=== PATIENT | female | born 1965 | race Caucasian/White ===

== ENCOUNTER → 2016-11-05 | Outpatient (CLI) | payer OTHER ==
[~2016-11-05] MED LIST: ALBUTEROL2.5 MG/0.5 INH; FLONASE 50 MCG/16 GM NOSE; SINGULAIR10 MG PO; ZYRTEC10 MG PO
== END ==
LOC: GRAD 13:19
DX: J32.8 Other chronic sinusitis (principal); J34.2 Deviated nasal septum